=== PATIENT | male | born 1960 | race African-American/Black ===

== ENCOUNTER 2021-07-20 10:55 | Observation (INO) ==
--- NOTE | 2021-07-20 11:47 | DR.EXTPAIN ---
HPI Time seen Time Seen by Provider: 07/20/21 11:38 PCP Primary Care Physician: GUMARO HPI Comment HPI Comment: PATIENT IS 61YR OLD MALE IN ER WITH PAIN IN LEFT FLANK RADIATING TO LUQ ABD. SEEN AT [facility] [address], CHEST CT WERE DONE WITHOUT ACUTE FINDINDS. HE WAS DIAGNOSED WITH PACREATITIS BECAUSING OF INCREASING LIPASE. HERE TODAY WITH INCREASING PAIN, NAUSEA AND CONSTIPATION. NO FEVER OR DYSURIA. ALSO PAIN LOWER ABDOMEN. Complaint/Symptoms Chief Complaint Doctor Comments: PAIN LEFT FLANK GOING INTO LUQ OF ABDOMEN TIMES SEVERAL WEEKS. Chief Complaint:: PATIENT CAME TO ER REPORTS NO "GOOD" BOWEL MOVEMENT IN 1 MONTH, NOW HAS LOWER BACK PAIN AND LOWER ABDOMINAL PAIN. PATIENT HAS BEEN TO [facility] 3 TIMES THIS MONTH FOR SAME COMPLAINT. COVID-19 Coronavirus risk:travel/contact w/high risk person: No Has patient experienced Coronavirus symptoms: No Nurses notes reviewed Nurses Notes Review: Yes Source History Provided: Patient Mode of arrival Mode of Arrival: Ambulatory Timing Onset of Chief Complaint: 06/20/21 Context History of: None Associated signs and symptoms Associated Signs and Symptoms: Pain, Abdominal Pain and Nausea PMH PMH Past Medical History: Yes Past Medical History: Diabetes and Hypertension Past Surgical History: Yes Past Surgical History Comment: LOWER BACK, CERVICAL AND LEFT SHOULDER Family History History of Family Medical Conditions: No Travel Risk Coronavirus risk:travel/contact w/high risk person: No Has patient experienced Coronavirus symptoms: No Infectious screening In the last 2 months have you had wt loss of >10#?: NO Have you had fever, night sweats or hemotysis?: No Have you traveled outside the country in the last 6 months?: No Isolation: Standard ROS Review of Systems Constitutional: See HPI, Weakness and Fatigue; negative Fever Eyes: No Symptoms Reported and See HPI ENTM: No Symptoms Reported and See HPI; negative Nose Discharge and Nose Congestion Respiratoy: No Symptoms Reported and See HPI; negative Productive Cough, Short of Breath and Wheezing Cardiovascular: No Symptoms Reported and See HPI; negative Chest Pain Gastrointestinal/Abdominal: See HPI, Abdominal Pain, Constipation and Nausea; negative Diarrhea and Vomiting Genitourinary: No Symptoms Reported and See HPI; negative Dysuria, Frequency and Hematuria Neurological: No Symptoms Reported and See HPI; negative Headache, Weakness and Dizziness Musculoskeletal: See HPI and Back Pain; negative Muscle Pain Integumentary: No Symptoms Reported, See HPI and Change in Color; negative Rash and Juandice Hematologic/Lymphatic: No Symptoms Reported and See HPI; negative Easy Bruising Endocrine: No Symptoms Reported and See HPI; negative Increased Thirst and Increased Urine Psychiatric: No Symptoms Reported and See HPI All Other Systems: Reviewed and Negative PE Vital Signs Vitals: Temperature 98.8 F Pulse Rate [Left Radial] 100 Pulse Rate 72 Respiratory Rate 18 Blood Pressure [Left Arm] 118/73 Blood Pressure 200/98 O2 Sat by Pulse Oximetry 97 General Limitations: No Limitations General Appearance: Alert and In No Apparent Distress Head Head Exam: Normal Inspection Eyes Eye exam: Normal Appearance and PERRL; negative Scleral Icterus and Conjunctival Injection ENT ENT Exam: Normal Exam, Normal Oropharynx, Normal External Ear Exam and TM's Normal Bilaterally Neck Neck Exam: Normal Inspection and Trachea Midline; negative Tenderness and Lymphadenopathy Chest Chest Inspection: Normal Inspection and Symmetric Chest Wall Rise; negative Tenderness Respiratory Respiratory Exam: Normal Lung Sounds Bilat; negative Accessory Muscle Use, Chest Wall Tenderness and Respiratory Distress Respiratory Exam: Bilateral: Clear to Auscultation Cardiovascular Cardiovascular Exam: Regular Rate, Normal Rhythm and Normal Heart Sounds; negative Systolic Murmur and Diastolic Murmur Abdominal Exam Abdominal Exam: Normal Bowel Sounds, Soft and Tenderness Abdominal Tenderness: RLQ, LUQ, LLQ, Epigastrium and Moderate Extremities Extremities Exam: Normal Inspection and Normal Capillary Refill Back Back Exam: Normal Inspection; negative (R) CVA Tenderness and (L) CVA Tenderness Neurological Neurological Exam: Alert, Oriented X3 and CN II-XII Intact; negative Motor Sensory Deficit Psychiatric Psychiatric Exam: Normal Affect and Normal Mood Skin Skin Exam: Dry MDM Differential Diagnosis Differential Diagnosis: Other (ABDOMINAL PAIN, PANCREATITIS, UTI, CONSTIPATION, BOWEL OBSTRUCTIONS, DM, HTN.) COURSE Treatment Treatment: SEE ORDERS. Consultation Consultation Comments: DISCUSSED PATIENT WITH DR. MARKHAM. HE WILL ADMIT PATIENT. Education/Counseling Education/Counseling: Patient Educated On: Diagnosis ROR Labs Reviewed Laboratory Results Reviewed?: Yes Result Diagrams: 07/20/21 12:15 07/20/21 12:15 Laboratory: WBC 8.0 X10^3/uL (3.6-10.0) 07/20/21 12:15 RBC 6.07 X10^6/uL (4.7-6.0) H 07/20/21 12:15 Hgb 16.8 g/dL (13.5-18.0) 07/20/21 12:15 Hct 49.8 % (42.0-54.0) 07/20/21 12:15 MCV 82.1 fL (80.0-100.0) 07/20/21 12:15 MCH 27.7 pg (27.0-34.0) 07/20/21 12:15 MCHC 33.7 g/dL (33.0-35.0) 07/20/21 12:15 RDW 14.7 % (11.6-16.5) 07/20/21 12:15 Plt Count 209 X10^3/uL (150.0-450.0) 07/20/21 12:15 MPV 7.3 fL (7.4-11.0) L 07/20/21 12:15 Neut % (Auto) 60.4 % (42.0-75.0) 07/20/21 12:15 Lymph % (Auto) 30.7 % (21.0-51.0) 07/20/21 12:15 [place] % (Auto) 6.9 % (0.0-13.0) 07/20/21 12:15 Eos % (Auto) 1.5 % (0.9-2.9) 07/20/21 12:15 Baso % (Auto) 0.5 % (0.2-1.0) 07/20/21 12:15 Neut # (Auto) 4.9 x10^3/uL (2.2-4.8) H 07/20/21 12:15 Lymph # (Auto) 2.5 X10^3/uL (1.3-2.9) 07/20/21 12:15 [place] # (Auto) 0.6 x10^3/uL (0.3-0.8) 07/20/21 12:15 Eos # (Auto) 0.1 x10^3/uL (0.0-0.2) 07/20/21 12:15 Baso # (Auto) 0.0 X10^3/uL (0.0-0.1) 07/20/21 12:15 Absolute Nucleated RBC 0.1 /100WBC 07/20/21 12:15 Sodium 141 mmol/L (136-145) 07/20/21 12:15 Corrected Sodium TNP 07/20/21 12:15 Potassium 3.9 mmol/L (3.5-5.1) 07/20/21 12:15 Chloride 102 mmol/L (98-107) 07/20/21 12:15 Carbon Dioxide 29.4 mmol/L (21-32) 07/20/21 12:15 BUN 10 mg/dL (7-18) 07/20/21 12:15 Creatinine 0.80 mg/dL (0.70-1.30) 07/20/21 12:15 Est GFR (MDRD) Af Amer > 60 (>60) 07/20/21 12:15 Est GFR (MDRD) Non-Af > 60 (>60) 07/20/21 12:15 Glucose 92 mg/dL (65-99) 07/20/21 12:15 Calcium 9.7 mg/dL (8.5-10.1) 07/20/21 12:15 Corrected Calcium TNP 07/20/21 12:15 Total Bilirubin 0.50 mg/dL (0.2-1.0) 07/20/21 12:15 AST 35 Units/L (15-37) 07/20/21 12:15 ALT 36 Units/L (12-78) 07/20/21 12:15 Alkaline Phosphatase 111 Units/L (46-116) 07/20/21 12:15 Total Protein 8.7 g/dL (6.4-8.2) H 07/20/21 12:15 Albumin 4.3 g/dL (3.4-5.0) 07/20/21 12:15 Globulin 4.4 g/dL (2.5-4.5) 07/20/21 12:15 Albumin/Globulin Ratio 1.0 Ratio (1.1-2.1) L 07/20/21 12:15 Amylase 215 Units/L (25-115) H 07/20/21 12:15 Lipase 869 Units/L (73-393) H 07/20/21 12:15 Specimen Type Clean catch urine 07/20/21 12:10 Urine Color Yellow (YELLOW) 07/20/21 12:10 Urine Appearance Clear (CLEAR) 07/20/21 12:10 Urine pH 6.0 (5.0 - 8.0) 07/20/21 12:10 Ur Specific [place] 1.020 (1.000-1.030) 07/20/21 12:10 Urine Protein 1+ (NEGATIVE) 07/20/21 12:10 Urine Glucose (UA) Negative (NEGATIVE) 07/20/21 12:10 Urine Ketones 1+ (NEGATIVE) 07/20/21 12:10 Urine Occult Blood Negative (NEGATIVE) 07/20/21 12:10 Urine Nitrite Negative (NEGATIVE) 07/20/21 12:10 Urine Bilirubin Negative (NEGATIVE) 07/20/21 12:10 Urine Urobilinogen 1+ (NORMAL) 07/20/21 12:10 Ur Leukocyte Esterase Negative (NEGATIVE) 07/20/21 12:10 Urine RBC 0-2 /HPF (0-3) 07/20/21 12:10 Urine WBC None seen /HPF (0-5) 07/20/21 12:10 Ur Squamous Epith Cells Few /HPF (NEGATIVE) 07/20/21 12:10 Urine Bacteria Trace /HPF (NEGATIVE) 07/20/21 12:10 Urine Mucus Moderate /HPF (NEGATIVE) 07/20/21 12:10 Ur Culture Indicated? No/not indicated 07/20/21 12:10 SARS CoV-2 RNA Rapid KANE Negative (NEGATIVE) 07/20/21 19:34 XRAY XRAY Interpreted by: Radiologist (REPORT NOTED AND DISCUSSED WITH PATIENT.) and Self Opioid Opioid Risk Tool Age (Sean box if 16-45): No Total: 0 Total Score Risk Category: Low Risk Copyright: [facility] predicting aberrant behaviors Diagnosis Discharge Problem: Acute pancreatitis Qualifiers: Pancreatitis type: unspecified pancreatitis type Acute pancreatitis complication: unspecified Qualified Code(s): K85.90 - Acute pancreatitis without necrosis or infection, unspecified Abdominal pain Qualifiers: Abdominal location: left upper quadrant Qualified Code(s): R10.12 - Left upper quadrant pain Hypertension Qualifiers: Hypertension type: primary hypertension Qualified Code(s): I10 - Essential (primary) hypertension Instructions Forms: Precautions for COVID19 [facility] Patient Portal Social Distancing
[2021-07-20] MEDS ORDERED: TORADOL 60 MG VIAL IM ONE (11:49)
[2021-07-20] MEDS ORDERED: PEPCID TAB 40 MG PO ONE (11:50)
[2021-07-20] MEDS ORDERED: PEPCID TAB 40 MG ONE (12:06)
[2021-07-20] MEDS ORDERED: TORADOL 60 MG VIAL ONE (12:06)
[2021-07-20 12:26] LABS: BASOPHILS % (AUTO) 0.5 % (0.2-1.0); EOSINOPHILS # (AUTO) 0.1 x10^3/uL (0.0-0.2); EOSINOPHILS % (AUTO) 1.5 % (0.9-2.9); HEMATOCRIT 49.8 % (42.0-54.0); HEMOGLOBIN 16.8 g/dL (13.5-18.0); LYMPHOCYTES # (AUTO) 2.5 X10^3/uL (1.3-2.9); LYMPHOCYTES % (AUTO) 30.7 % (21.0-51.0); MEAN CORPUSCULAR HEMOGLOBIN 27.7 pg (27.0-34.0); MEAN CORPUSCULAR HGB CONC 33.7 g/dL (33.0-35.0); MEAN CORPUSCULAR VOLUME 82.1 fL (80.0-100.0); MEAN PLATELET VOLUME 7.3 fL (7.4-11.0); MONOCYTES # (AUTO) 0.6 x10^3/uL (0.3-0.8); MONOCYTES % (AUTO) 6.9 % (0.0-13.0); NEUTROPHILS # (AUTO) 4.9 x10^3/uL (2.2-4.8); NEUTROPHILS % (AUTO) 60.4 % (42.0-75.0); PLATELET COUNT 209 X10^3/uL (150.0-450.0); RED BLOOD COUNT 6.07 X10^6/uL (4.7-6.0); RED CELL DISTRIBUTION WIDTH 14.7 % (11.6-16.5)
[2021-07-20 12:33] LABS: BILIRUBIN,URINE NEGATIVE (NEGATIVE); BLOOD/HEMOGLOBIN,URINE NEGATIVE (NEGATIVE); GLUCOSE, URINE NEGATIVE (NEGATIVE); KETONES,URINE 1+ (NEGATIVE); LEUKOCYTE ESTERASE ,URINE NEGATIVE (NEGATIVE); NITRITES,URINE NEGATIVE (NEGATIVE); PROTEIN,URINE 1+ (NEGATIVE); UROBILINOGEN,URINE 1+ (NORMAL)
[2021-07-20 12:35] LABS: ALANINE AMINOTRANSFERASE 36 Units/L (12-78); ALBUMIN 4.3 g/dL (3.4-5.0); ALKALINE PHOSPHATASE 111 Units/L (46-116); AMYLASE 215 Units/L (25-115); ASPARTATE AMINO TRANSFERASE 35 Units/L (15-37); BLOOD UREA NITROGEN 10 mg/dL (7-18); CALCIUM 9.7 mg/dL (8.5-10.1); CARBON DIOXIDE 29.4 mmol/L (21-32); CHLORIDE 102 mmol/L (98-107); LIPASE 869 Units/L (73-393); SODIUM 141 mmol/L (136-145); TOTAL PROTEIN 8.7 g/dL (6.4-8.2); eGFR NON BLACK RACES > 60 (>60)
[2021-07-20 12:41] LABS: APPEARANCE,URINE CLEAR (CLEAR); BACTERIA,URINE TRACE /HPF (NEGATIVE); COLOR,URINE YELLOW (YELLOW); MUCUS,URINE MODERATE /HPF (NEGATIVE); RBC,URINE 0-2 /HPF (0-3); SQUAMOUS EPITHELIAL CELL,UR FEW /HPF (NEGATIVE)
--- NOTE | 2021-07-20 12:48 | RAD ---
HISTORYPATIENT CAME TO ER REPORTS NO "GOOD" BOWEL MOVEMENT IN 1 MONTH, NOW HAS LOWER BACK PAIN AND LOWER ABDOMINAL PAIN. DM, HTN, SPINE, ORTHOSTUDYACUTE ABDOMEN SERIESCOMPARISONNone.FINDINGSThe trachea is midline. The cardiac silhouette is [unremarkable]. [The lungs are clear without focal mass or consolidation. There is no effusion or pneumothorax.] [The bony thorax is unremarkable]. Partially visualized cervical hardware. Surgical anchor overlying the proximal left humerus.Flat plate and upright evaluation of the abdomen demonstrates a [nonspecific/nonobstructive bowel-gas pattern with air and moderate amounts of stool to the level of the rectum]. There is no pneumoperitoneum. No pathological soft tissue mass or calcification can be observed. Scoliotic curvature of the lumbar spine. Lumbar hardware appears intact. Otherwise, the bony structures are grossly intact.IMPRESSION1. [No acute cardiopulmonary disease.]2. [No evidence for acute abdominal pathology identified.]Electronically signed by: FATIMAH CURRIE (Jul 20, 2021 12:46:19)
[2021-07-20] MEDS ORDERED: NS 1000 ML 1,000 ML IV ONE (13:08)
[2021-07-20] MEDS ORDERED: NS 1000 ML 1,000 ML ONE ×2 (13:17→19:51)
[2021-07-20] MEDS ORDERED: CATAPRES TAB 0.2 MG ONE (16:39)
[2021-07-20] MEDS ORDERED: CATAPRES TAB 0.2 MG PO ONE (16:49)
[2021-07-20] MEDS ORDERED: PEPCID 20 MG IV PREMIX* 20 MG/50 ML BAG IV ONE (19:45)
[2021-07-20] MEDS ORDERED: PEPCID 20 MG IV PREMIX* 50 ML IV ONE (19:51)
[2021-07-20] MEDS: NS 1000 ML 1,000 ML IV SCH (19:58)
[2021-07-20] MEDS ORDERED: PEPCID 20 MG IV PREMIX* 20 MG/50 ML BAG IV PRN (20:09)
[2021-07-20] MEDS ORDERED: ZOFRAN INJ 4 MG VIAL ONE (20:15)
[2021-07-20] MEDS ORDERED: DEMEROL INJ ONE (20:15)
[2021-07-20] MEDS: ZOFRAN INJ 4 MG VIAL IVP PRN (20:19)
[2021-07-20] MEDS: DEMEROL INJ IVP PRN (20:19)
[2021-07-20] MEDS: NICOTINE PATCH TD SCH (20:55)
[2021-07-21] MEDS: NS 1000 ML 1,000 ML IV SCH ×3 (03:14→20:19)
[2021-07-21] MEDS: DEMEROL INJ IVP PRN ×3 (04:27→17:21)
[2021-07-21 06:26] LABS: SODIUM 139 mmol/L (136-145); eGFR NON BLACK RACES > 60 (>60)
[2021-07-21 07:24] LABS: BASOPHILS # (AUTO) 0.2 X10^3/uL (0.0-0.1); BASOPHILS % (AUTO) 2.9 % (0.2-1.0); EOSINOPHILS # (AUTO) 0.1 x10^3/uL (0.0-0.2); HEMATOCRIT 43.2 % (42.0-54.0); LYMPHOCYTES # (AUTO) 2.3 X10^3/uL (1.3-2.9); LYMPHOCYTES % (AUTO) 34.5 % (21.0-51.0); MEAN CORPUSCULAR HEMOGLOBIN 27.6 pg (27.0-34.0); MEAN CORPUSCULAR VOLUME 81.2 fL (80.0-100.0); MEAN PLATELET VOLUME 7.3 fL (7.4-11.0); MONOCYTES # (AUTO) 0.4 x10^3/uL (0.3-0.8); MONOCYTES % (AUTO) 6.5 % (0.0-13.0); NEUTROPHILS # (AUTO) 3.5 x10^3/uL (2.2-4.8); NEUTROPHILS % (AUTO) 54.1 % (42.0-75.0); PLATELET COUNT 179 X10^3/uL (150.0-450.0); RED BLOOD COUNT 5.32 X10^6/uL (4.7-6.0); RED CELL DISTRIBUTION WIDTH 14.8 % (11.6-16.5); WHITE BLOOD COUNT 6.5 X10^3/uL (3.6-10.0)
[2021-07-21 07:30] LABS: HEMOGLOBIN 14.7 g/dL (13.5-18.0)
[2021-07-21 07:34] LABS: ALANINE AMINOTRANSFERASE 26 Units/L (12-78); ALBUMIN 3.3 g/dL (3.4-5.0); ALKALINE PHOSPHATASE 90 Units/L (46-116); AMYLASE 104 Units/L (25-115); ASPARTATE AMINO TRANSFERASE 26 Units/L (15-37); BLOOD UREA NITROGEN 9 mg/dL (7-18); CALCIUM 8.5 mg/dL (8.5-10.1); CARBON DIOXIDE 27.2 mmol/L (21-32); CHLORIDE 104 mmol/L (98-107); COR CA(FOR HYPOALB) 9.1 mg/dL (8.5-10.1); CREATININE 0.78 mg/dL (0.70-1.30); LIPASE 188 Units/L (73-393); TOTAL PROTEIN 6.7 g/dL (6.4-8.2)
[2021-07-21] MEDS: NICOTINE PATCH TD SCH (08:47)
[2021-07-21] MEDS: COZAAR PO SCH (08:49)
--- NOTE | 2021-07-21 10:09 | DR.H&P ---
H&P - History & Physical for Day of: H&P Date: 07/20/21 - Chief Complaint Chief Complaint: ABDOMINAL PAIN, N/V - History of Present Illness History of Present Illness: PATIENT IS 61YR OLD MALE IN ER WITH PAIN IN LEFT FLANK RADIATING TO LUQ ABD. SEEN AT [facility] [address], CHEST CT WERE DONE WITHOUT ACUTE FINDINDS. HE WAS DIAGNOSED WITH PACREATITIS BECAUSING OF INCREASING LIPASE. HERE TODAY WITH INCREASING PAIN, NAUSEA AND CONSTIPATION. NO FEVER OR DYSURIA. ALSO PAIN LOWER ABDOMEN. - Past Medical History Past Medical History: Arthritis, Diabetes, Hypertension - Past Surgical History Surgical History: Ortho Surgery - Family History Family Medical History: Diabetes Mellitus, Cancer - Social History Does patient currently use any type of tobacco product: Yes Have you used tobacco products in the last 12 months: Yes Type of Tobacco Use: Cigarettes Alcohol Use: None Drug Use: Marijuana - Medications Home Medications: cyclobenzaprine [From Flexeril] Allergy (Verified 07/20/21 10:59) CONTINUE taking the following medications losartan 100 mg PO DAILY 07/20/21 [History] trazodone 100 mg PO HS 07/20/21 [History] - Review of Systems Constitutional: Weakness Eyes: No Symptoms Reported ENT: No Symptoms Reported Respiratory: No Symptoms Reported Cardiovascular: No Symptoms Reported Gastrointestinal: Nausea, Vomiting, Abdominal Pain Genitourinary: No Symptoms Reported Musculoskeletal: Back Pain Skin: No Symptoms Reported Neurological: No Symptoms Reported - Physical Exam Vital Signs: Temperature 97.9 F Pulse Rate [Left Radial] 70 Pulse Rate 69 Respiratory Rate 20 Blood Pressure [Left Arm] 138/77 Blood Pressure 139/83 O2 Sat by Pulse Oximetry 98 Oriented: Normal Eyes: Normal Ear: Normal Nose: Normal Throat: Normal Respiratory: RLL Diminished, LLL Diminished Cardiovascular: Normal : Normal Auscultation: Bowel Sounds: Decreased Palpation: Normal Tenderness: RUQ, LUQ, Epigastric Skin: Decreased Turgur Musculoskeletal: Back:Lumbar Psychiatric: Normal Mood Description: Calm Speech Pattern: Clear, Appropriate - Assessment/Plan (1) Acute pancreatitis Qualifiers: Pancreatitis type: unspecified pancreatitis type Acute pancreatitis complication: unspecified Qualified Code(s): K85.90 - Acute pancreatitis without necrosis or infection, unspecified Status: Acute Plan: ADMIT, NPO. PAIN CONTROL, GENTLE IV HYDRATION. PPT THERAPY. ADMISSION LABS AND REPEAT AM CBC CMP AMYLASE AND LIPASE. ABD XRAY ON ADMISSION, VERIFY HOME MEDICATION, OBTAIN PREVIOUS CT SCAN AND PLACE ON CHART (2) Hypertension Qualifiers: Hypertension type: primary hypertension Qualified Code(s): I10 - Essential (primary) hypertension Status: Acute - Allergies Allergies/Adverse Reactions: Allergies Allergy/AdvReac Type Severity Reaction Status Date / Time cyclobenzaprine Allergy Verified 07/20/21 10:59 [From Flexeril]
[2021-07-21] MEDS ORDERED: NS 100 ML IV 100 ML ONE (11:44)
--- NOTE | 2021-07-21 13:54 | CT ---
HISTORYNAUSEA/ VOMITTING, ABD PAINSTUDYCT ABDOMEN/PELVIS WITH CONCOMPARISONRadiographs 07/20/2021TECHNIQUECT images of the abdomen and pelvis were obtained after IV and oral contrast administration. Dose reduction techniques including Automated Exposure Control (AEC) and adjustment of mA and kV were utilized.FINDINGSPostsurgical changes of L5-S1 posterior interbody fusion noted. No acute osseous abnormality. The lung bases are essentially clear.The stomach appears somewhat thickened, but is nondistended. The liver, gallbladder, spleen, pancreas, adrenals, and kidneys are unremarkable. No radiopaque ureteral stone or significant hydroureter. The sigmoid and proximal rectum appears somewhat thickened, but are nondistended. Otherwise, no marked thickening or dilatation of the lower GI tract is identified. Normal appendix. The bladder and prostate are unremarkable. There is aortoiliac atherosclerosis, without aneurysm.IMPRESSIONThe stomach is diffusely thickened, but nondistended. Gastritis is possible.Long segment thickening of the sigmoid and proximal rectum may also be related to nondistention, but an infectious or inflammatory proctocolitis is not excluded.Electronically signed by: SAL MYERS (Jul 21, 2021 13:49:40)
[2021-07-21] MEDS: DESYREL PO SCH (20:19)
[2021-07-22] MEDS: NS 1000 ML 1,000 ML IV SCH ×4 (03:48→21:36)
[2021-07-22 06:24] LABS: ALANINE AMINOTRANSFERASE 22 Units/L (12-78); ALBUMIN 3.1 g/dL (3.4-5.0); ALKALINE PHOSPHATASE 82 Units/L (46-116); AMYLASE 88 Units/L (25-115); ASPARTATE AMINO TRANSFERASE 20 Units/L (15-37); BLOOD UREA NITROGEN 5 mg/dL (7-18); CALCIUM 8.2 mg/dL (8.5-10.1); CARBON DIOXIDE 26.2 mmol/L (21-32); CHLORIDE 107 mmol/L (98-107); COR CA(FOR HYPOALB) 8.9 mg/dL (8.5-10.1); CREATININE 0.75 mg/dL (0.70-1.30); LIPASE 98 Units/L (73-393); SODIUM 142 mmol/L (136-145); TOTAL PROTEIN 6.4 g/dL (6.4-8.2); eGFR NON BLACK RACES > 60 (>60)
[2021-07-22 06:39] LABS: BASOPHILS % (AUTO) 0.4 % (0.2-1.0); EOSINOPHILS # (AUTO) 0.2 x10^3/uL (0.0-0.2); HEMOGLOBIN 13.9 g/dL (13.5-18.0); LYMPHOCYTES # (AUTO) 2.4 X10^3/uL (1.3-2.9); LYMPHOCYTES % (AUTO) 40.6 % (21.0-51.0); MEAN CORPUSCULAR HEMOGLOBIN 27.5 pg (27.0-34.0); MEAN CORPUSCULAR HGB CONC 33.8 g/dL (33.0-35.0); MEAN CORPUSCULAR VOLUME 81.4 fL (80.0-100.0); MEAN PLATELET VOLUME 7.6 fL (7.4-11.0); MONOCYTES # (AUTO) 0.4 x10^3/uL (0.3-0.8); MONOCYTES % (AUTO) 7.6 % (0.0-13.0); NEUTROPHILS # (AUTO) 2.8 x10^3/uL (2.2-4.8); NEUTROPHILS % (AUTO) 48.4 % (42.0-75.0); PLATELET COUNT 173 X10^3/uL (150.0-450.0); RED BLOOD COUNT 5.04 X10^6/uL (4.7-6.0); RED CELL DISTRIBUTION WIDTH 14.6 % (11.6-16.5); WHITE BLOOD COUNT 5.8 X10^3/uL (3.6-10.0)
[2021-07-22] MEDS: AYR NASAL DROPS SCH ×4 (09:18→20:06)
[2021-07-22] MEDS: COZAAR PO SCH (09:18)
[2021-07-22] MEDS: NICOTINE PATCH TD SCH (09:18)
[2021-07-22] MEDS: DEMEROL INJ IVP PRN (09:41)
[2021-07-22] MEDS: ZOFRAN INJ 4 MG VIAL IVP PRN ×2 (09:41→20:08)
[2021-07-22] MEDS ORDERED: MILK OF MAGNESIA ONE (19:49)
[2021-07-22] MEDS: MILK OF MAGNESIA PO SCH (20:07)
[2021-07-22] MEDS: DESYREL PO SCH (20:08)
[2021-07-22] MEDS: NORCO 5/325 MG TAB PO PRN (21:41)
[2021-07-23] MEDS: NS 1000 ML 1,000 ML IV SCH ×5 (02:44→21:04)
[2021-07-23] MEDS: NORCO 5/325 MG TAB PO PRN ×2 (04:19→20:09)
[2021-07-23] MEDS: ZOFRAN INJ 4 MG VIAL IVP PRN ×2 (04:20→20:09)
[2021-07-23 06:07] LABS: BASOPHILS % (AUTO) 0.4 % (0.2-1.0); EOSINOPHILS # (AUTO) 0.2 x10^3/uL (0.0-0.2); HEMATOCRIT 39.8 % (42.0-54.0); HEMOGLOBIN 13.3 g/dL (13.5-18.0); LYMPHOCYTES # (AUTO) 2.5 X10^3/uL (1.3-2.9); LYMPHOCYTES % (AUTO) 45.7 % (21.0-51.0); MEAN CORPUSCULAR HEMOGLOBIN 27.3 pg (27.0-34.0); MEAN CORPUSCULAR HGB CONC 33.5 g/dL (33.0-35.0); MEAN CORPUSCULAR VOLUME 81.4 fL (80.0-100.0); MEAN PLATELET VOLUME 7.3 fL (7.4-11.0); MONOCYTES # (AUTO) 0.5 x10^3/uL (0.3-0.8); MONOCYTES % (AUTO) 9.9 % (0.0-13.0); NEUTROPHILS # (AUTO) 2.2 x10^3/uL (2.2-4.8); PLATELET COUNT 171 X10^3/uL (150.0-450.0); RED BLOOD COUNT 4.88 X10^6/uL (4.7-6.0); RED CELL DISTRIBUTION WIDTH 14.4 % (11.6-16.5); WHITE BLOOD COUNT 5.5 X10^3/uL (3.6-10.0)
[2021-07-23 06:17] LABS: ALANINE AMINOTRANSFERASE 23 Units/L (12-78); ALKALINE PHOSPHATASE 81 Units/L (46-116); AMYLASE 166 Units/L (25-115); ASPARTATE AMINO TRANSFERASE 29 Units/L (15-37); BLOOD UREA NITROGEN 5 mg/dL (7-18); CALCIUM 8.1 mg/dL (8.5-10.1); CARBON DIOXIDE 26.4 mmol/L (21-32); CHLORIDE 108 mmol/L (98-107); COR CA(FOR HYPOALB) 8.9 mg/dL (8.5-10.1); COR NA(FOR HYPERGLY) 142 mmol/L (136-145); CREATININE 0.77 mg/dL (0.70-1.30); LIPASE 769 Units/L (73-393); SODIUM 142 mmol/L (136-145); TOTAL PROTEIN 6.1 g/dL (6.4-8.2); eGFR NON BLACK RACES > 60 (>60)
[2021-07-23] MEDS: COZAAR PO SCH ×2 (08:01→12:16)
[2021-07-23] MEDS: COLACE CAP 100 MG PO SCH (08:01)
[2021-07-23] MEDS: NICOTINE PATCH TD SCH (08:08)
[2021-07-23] MEDS: AYR NASAL DROPS SCH ×4 (08:08→20:10)
[2021-07-23] MEDS: MORPHINE SULFATE INJ 4 MG IVP PRN ×2 (11:29→15:45)
--- NOTE | 2021-07-23 11:55 | MRI ---
HISTORYUPPER ABDOMINAL PAINSTUDYMRCPCOMPARISONCT abdomen and pelvis dated 07/21/2021TECHNIQUEMultiplanar multi sequences images through the abdomen were performed without intravenous contrast. 3D MPGR images were performed as part of the MRCP protocolFINDINGSThe lung bases are clear. There is no evidence of pleural effusionsThe liver measures in length approximately 15.7 centimeters. There is no significant drop of signal in out of phase to suggest fatty liver. The spleen measures approximately 9.2 centimeters. There is no evidence of adrenal masses, there are bilateral normal-sized kidneys without evidence of hydronephrosis, no dominant high on T2 signal lesions are present. There is no abnormal is high-signal on T2 liver lesions.The gallbladder is no significant distended, there is no significant pericholecystic fluid. There are possible few, 2 or 3 small 2 millimeters gallstones. There is no intrahepatic biliary dilatation. The common bile duct is no significant dilated measuring in the mid to distal aspect 3 millimeters. No suspicious for filling defects.There is no ascites.The pancreas demonstrate no focal lesions for noncontrast study there is no significant edema or para E pancreatic fluid. The pancreatic duct is no significant dilated.The stomach is not distended; however demonstrate mild thickening of the wall with prominence of the gastric folds better seen on prior CT it could represent gastritis. Clinical correlation is recommended.IMPRESSIONPossible 2 or 3 gallstones measuring 2 millimeters, no significant intrahepatic or extrahepatic biliary dilatation. No filling defects in the mid to distal common bile duct.No inflammatory changes associated with the gallbladder, no pericholecystic fluidMild fatty liver.Mild thickening of the mucosa of the stomach diffusely could represent gastritis. Clinical correlation is recommended.Electronically signed by: Cathleen Ugalde (Jul 23, 2021 11:53:14)
--- NOTE | 2021-07-23 15:44 | US ---
HISTORYAcute pancreatitis, abdominal painSTUDYRight upper quadrant ultrasoundCOMPARISONNoneFINDINGSThe gallbladder is no significant distended. There is a wall thickening of approximately 2 millimeters. There are gallstones layering in the dependent region. The left lobe of the liver measures 10.4 x 11.3 centimeters. There is color Doppler in the portal vein with hepatopetal flow. The hepatic artery is patent. There is hepatofugal flow in the hepatic veins. The common bile duct measures 0.2 centimeters. The right kidney measures 4.9 x 4.4 x 10 centimeters with a cortex of 1.2 centimeters. No hydronephrosis. The pancreas was not well seen. The IVC is patent.IMPRESSIONCholelithiasis without cholecystitis. No intra or extrahepatic biliary dilatation. No ascites.Electronically signed by: Cathleen Ugalde (Jul 23, 2021 15:41:53)
[2021-07-23] MEDS ORDERED: CATAPRES TAB 0.1 MG PO ONE (17:42)
[2021-07-23] MEDS ORDERED: APRESOLINE INJ 20 MG VIAL IVP PRN (17:42)
[2021-07-23] MEDS ORDERED: MAGNESIUM SULFATE 1 GRAM/100 mL PREMIX 1 G/100 ML BAG IV PRN (19:02)
[2021-07-23] MEDS ORDERED: POTASSIUM CHLORIDE LIQ 20 MEQ UDC PO PRN (19:02)
[2021-07-23] MEDS ORDERED: KLOR-CON PO PRN (19:02)
[2021-07-23] MEDS ORDERED: K-RIDER 10 MEQ/NS 100 ML 10 MEQ/100 ML BAG IV PRN (19:02)
[2021-07-23] MEDS: DESYREL PO SCH (20:08)
[2021-07-23] MEDS: MILK OF MAGNESIA PO SCH (20:09)
[2021-07-23] MEDS: K-DUR TAB 20 MEQ PO PRN (20:09)
[2021-07-24] MEDS: NS 1000 ML 1,000 ML IV SCH ×4 (00:56→11:54)
[2021-07-24 03:29] LABS: CRYPTOSPORIDIUM PARVUM ANTIGEN NEGATIVE (NEGATIVE); GIARDIA LAMBLIA ANTIGEN NEGATIVE (NEGATIVE)
[2021-07-24] MEDS: ZOFRAN INJ 4 MG VIAL IVP PRN (04:18)
[2021-07-24] MEDS: NORCO 5/325 MG TAB PO PRN ×2 (04:18→13:05)
[2021-07-24 05:12] LABS: BASOPHILS % (AUTO) 0.5 % (0.2-1.0); EOSINOPHILS # (AUTO) 0.2 x10^3/uL (0.0-0.2); EOSINOPHILS % (AUTO) 3.6 % (0.9-2.9); HEMATOCRIT 40.1 % (42.0-54.0); HEMOGLOBIN 13.6 g/dL (13.5-18.0); LYMPHOCYTES # (AUTO) 2.2 X10^3/uL (1.3-2.9); LYMPHOCYTES % (AUTO) 44.8 % (21.0-51.0); MEAN CORPUSCULAR HEMOGLOBIN 27.4 pg (27.0-34.0); MEAN CORPUSCULAR VOLUME 80.5 fL (80.0-100.0); MEAN PLATELET VOLUME 7.4 fL (7.4-11.0); MONOCYTES # (AUTO) 0.5 x10^3/uL (0.3-0.8); MONOCYTES % (AUTO) 9.3 % (0.0-13.0); NEUTROPHILS # (AUTO) 2.1 x10^3/uL (2.2-4.8); NEUTROPHILS % (AUTO) 41.8 % (42.0-75.0); PLATELET COUNT 175 X10^3/uL (150.0-450.0); RED BLOOD COUNT 4.98 X10^6/uL (4.7-6.0); RED CELL DISTRIBUTION WIDTH 14.4 % (11.6-16.5); WHITE BLOOD COUNT 4.9 X10^3/uL (3.6-10.0)
[2021-07-24 05:35] LABS: ALANINE AMINOTRANSFERASE 25 Units/L (12-78); ALBUMIN 3.3 g/dL (3.4-5.0); ALKALINE PHOSPHATASE 85 Units/L (46-116); AMYLASE 122 Units/L (25-115); ASPARTATE AMINO TRANSFERASE 24 Units/L (15-37); BLOOD UREA NITROGEN 4 mg/dL (7-18); CALCIUM 8.4 mg/dL (8.5-10.1); CARBON DIOXIDE 24.4 mmol/L (21-32); CHLORIDE 108 mmol/L (98-107); COR NA(FOR HYPERGLY) 141 mmol/L (136-145); CREATININE 0.72 mg/dL (0.70-1.30); LIPASE 258 Units/L (73-393); MAGNESIUM 2.2 mg/dL (1.7-2.9); SODIUM 141 mmol/L (136-145); TOTAL PROTEIN 6.5 g/dL (6.4-8.2); eGFR NON BLACK RACES > 60 (>60)
[2021-07-24] MEDS ORDERED: BACTROBAN TOPICAL OINT ONE (06:53)
[2021-07-24] MEDS ORDERED: BRIDION ONE (07:14)
[2021-07-24] MEDS ORDERED: OFIRMEV IV 1000 MG VIAL 1,000 MG/100 ML VIAL IV ONE (07:15)
[2021-07-24] MEDS ORDERED: FENTANYL VIAL INJ 100 mcg ONE ×2 (07:15→07:47)
[2021-07-24] MEDS ORDERED: ZEMURON 50 MG VIAL ONE (07:15)
[2021-07-24] MEDS ORDERED: NS 1000 ML 1,000 ML ONE (07:17)
[2021-07-24] MEDS ORDERED: VERSED ONE (07:19)
[2021-07-24] MEDS ORDERED: ZOFRAN INJ 4 MG VIAL ONE (07:19)
[2021-07-24] MEDS ORDERED: XYLOCAINE 2 % (PLAIN) ONE (07:19)
[2021-07-24] MEDS ORDERED: SUPRANE ONE (07:19)
[2021-07-24] MEDS ORDERED: LTA KIT LIDOCAINE 4% ONE (07:19)
[2021-07-24] MEDS ORDERED: ANCEF 1 GRAM IV PREMIX* 1 G/50 ML BAG IV ONE (07:19)
[2021-07-24] MEDS ORDERED: TORADOL 30 MG VIAL ONE (07:19)
[2021-07-24] MEDS ORDERED: DIPRIVAN VIAL ONE (07:19)
[2021-07-24] MEDS ORDERED: APRESOLINE INJ 20 MG VIAL ONE (08:15)
[2021-07-24] MEDS ORDERED: REGLAN INJ 10 MG VIAL IVP PRN (08:30)
[2021-07-24] MEDS ORDERED: ZOFRAN INJ 4 MG VIAL IVP PRN (08:30)
[2021-07-24] MEDS ORDERED: BARHEMSYS INJ IVP PRN (08:30)
[2021-07-24] MEDS: DILAUDID INJ IVP PRN ×2 (08:30→08:50)
[2021-07-24] MEDS ORDERED: BENADRYL INJ 50 MG VIAL IVP PRN (08:30)
[2021-07-24] MEDS ORDERED: PHENERGAN INJ 25 MG IM PRN (08:30)
[2021-07-24] MEDS ORDERED: DILAUDID INJ ONE (08:33)
[2021-07-24] MEDS: COLACE CAP 100 MG PO SCH (09:11)
[2021-07-24] MEDS: AYR NASAL DROPS SCH ×2 (09:13→13:04)
[2021-07-24] MEDS: COZAAR PO SCH (09:13)
[2021-07-24] MEDS: NICOTINE PATCH TD SCH (09:13)
[2021-07-24] MEDS ORDERED: DILAUDID INJ IVP PRN (09:14)
[2021-07-24 14:07] VITALS: BP 188/91
[2021-07-24] MEDS: K-DUR TAB 20 MEQ PO PRN (14:46)
[2021-07-25] MEDS ORDERED: COZAAR PO SCH (09:00)
== END 2021-07-24 15:30 | disposition home or self-care (01) ==
LOC: ER 10:56 → MED/SURG 19:51 → INTOOBSV 19:51 → MED/SURG 20:26
PROVIDERS: ADMIT Internal Medicine; ATTEND Internal Medicine
DX: K59.09 Other constipation; Z20.822 Contact with and (suspected) exposure to COVID-19; K85.10 Biliary acute pancreatitis without necrosis or infection; I10 Essential (primary) hypertension; K52.89 Other specified noninfective gastroenteritis and colitis; E11.65 Type 2 diabetes mellitus with hyperglycemia; R10.12 Left upper quadrant pain